=== PATIENT | male | born 1965 | race Caucasian/White ===

== ENCOUNTER → 2018-10-10 | Emergency (ER) | payer OTHER ==
[~2018-10-10] VITALS: Ht 175.3 cm; Wt 104.3 kg
[~2018-10-10] MED LIST: AMOX1TAB12 PO; COZAAR25 MG; LOSARTAN POTAS100 MG
== END | disposition left against medical advice (07) ==
LOC: ER 13:11 → CPU-OBS 15:56
DX: R07.89 Other chest pain (principal)
CPT/HCPCS: G0378; G0379; 93005